=== PATIENT | male | born 1945 | race Caucasian/White ===

== ENCOUNTER 2016-04-02 15:53 | Inpatient (IN) | payer MEDICARE, OTHER ==
[~2016-04-02] VITALS: Ht 162.6 cm; Wt 63.6 kg
[~2016-04-02 15:53] MED LIST: ASPI81 PO; BENA5 PO; CLOP75 PO; DARV PO; LEVO.1 PO; LORA-392 PO; METO50TA PO; ZOCO10TA PO
[2016-04-02 15:54] VITALS: PULSE 70; RESP 16; TEMP 97.6; O2SAT 98
[2016-04-02 15:58] VITALS: BP 233/102
[2016-04-02 17:00] VITALS: BP 210/89; PULSE 71
[2016-04-02 17:11] LABS: AUTOMATED NEUTROPHIL # 4.7 TH/MM3 (1.8-7.7); BASOPHIL % 0.5 % (0.0-2.0); EOSINOPHIL # 0.1 TH/MM3 (0-0.4); EOSINOPHIL % 1.2 % (0.0-4.0); HEMATOCRIT 42.4 % (39.0-51.0); HEMO FLAGS DIFF FINAL; LYMPH % 11.4 % (9.0-44.0); LYMPHOCYTE # 0.7 TH/MM3 (1.0-4.8); MEAN CELL VOLUME 94.6 FL (80.0-100.0); MEAN CORPUSCULAR HEMOGLOBIN 32.4 PG (27.0-34.0); MEAN CORPUSCULAR HGB CONC 34.3 % (32.0-36.0); MONO % 13.4 % (0.0-8.0); NEUT % 73.5 % (16.0-70.0); PLATELET COUNT 211 TH/MM3 (150-450); RED BLOOD COUNT 4.49 MIL/MM3 (4.50-5.90); RED CELL DISTRIBUTION WIDTH 13.4 % (11.6-17.2); WHITE BLOOD COUNT 6.4 TH/MM3 (4.0-11.0)
[2016-04-02 17:31] LABS: ANION GAP 7 MEQ/L (5-15); BICARBONATE 26.9 MEQ/L (21.0-32.0); BLOOD UREA NITROGEN 14 MG/DL (7-18); CHLORIDE 95 MEQ/L (98-107); GLOMERULAR FILTRATION RATE 81 ML/MIN (>89); POTASSIUM 4.3 MEQ/L (3.5-5.1); SODIUM (NA) 129 MEQ/L (136-145)
[2016-04-02 17:36] LABS: CREATINE KINASE 202 U/L (39-308)
[2016-04-02 17:48] LABS: CKMB 3.5 NG/ML (0.5-3.6)
[2016-04-02 22:36] VITALS: BP 238/98; PULSE 78; RESP 14; TEMP 97.6; O2SAT 97
--- NOTE | 2016-04-02 23:33 | PD ---
HPI Chief Complaint: Hypertension Time Seen by Provider: 23:29 Travel History International Travel<30 days: No Contact w/Intl Traveler<30days: No Traveled to known affect area: No History of Present Illness HPI 70-year-old male came to the emergency room sent from the [place] for hypertension. Patient says that he has history of hypertension and has been taking his medication. However he checked his blood pressure today and was running high and hence went to see his primary care in [place]. Patient says that his 3 months ago and he thinks it could be related to the anxiety after her . However they noticed that his blood pressure was more than 200 and send him to the emergency room. Patient was in the waiting room for 7 hours and his blood pressure was rechecked few times and it remained more than 220 systolic. Patient is not complaining of any headache, chest pain or blurred vision. He has been taking his blood pressure medications like he supposed to. Patient says that 2 years ago he was on Ativan for anxiety but was stopped. He had gone to see his primary care today to see if he should be on anxiety medications. No suicidal ideations. [facility] Past Medical History Narrative Medical List of his past medical history as reviewed from the nursing note. Arthritis: No Asthma: No Heart Rhythm Problems: No Cardiac Catheterization: Yes Cardiovascular Problems: Yes High Cholesterol: No Chest Pain: Yes Congestive Heart Failure: No COPD: No Cerebrovascular Accident: No Coronary Artery Disease: Yes Diabetes: No Diminished Hearing: No GERD: No Genitourinary: No Headaches: No Hepatitis: No Hiatal Hernia: No Hypertension: Yes Kidney Stones: No Musculoskeletal: No Neurologic: No Reproductive: No Respiratory: No Migraines: No Myocardial Infarction: No Renal Failure: No Seizures: No Sleep Apnea: No Thyroid Disease: Yes (HYPOTHYROID) Ulcer: No Past Surgical History Abdominal Surgery: No Appendectomy: No Cholecystectomy: No Coronary Artery Bypass Graft: Yes (11/09/07) Coronary Stent: Yes (DR MEYERS DID IN JUNE 2007) Ear Surgery: No Endocrine Surgery: No Eye Surgery: No Genitourinary Surgery: No Gynecologic Surgery: No Oral Surgery: No Thoracic Surgery: No Social History Alcohol Use: Yes (5 BEERS DAILY) Tobacco Use: No (2PK PER DAY UP UNTIL July,) Substance Use: No Allergies-Medications (Allergen,Severity, Reaction): Coded Allergies: No Known Allergies (Verified , 04/02/16) Comments No known drug allergies. Reported Meds & Prescriptions Reported Meds & Active Scripts Active Reported Synthroid (Levothyroxine Sodium) 75 Mcg Tab 75 Mcg PO DAILY Zocor (Simvastatin) 10 Mg Tab 10 Mg PO HS Metoprolol Tartrate 25 Mg Tab 12.5 Mg PO BID Benazepril (Benazepril HCl) 20 Mg Tab 20 Mg PO DAILY Aspirin 81 Mg Tabdr 81 Mg PO DAILY Narrative Medication List of his home medications reviewed from the nursing note. Review of Systems Except as stated in HPI: all other systems reviewed are Neg Physical Exam Narrative GENERAL: Awake, alert, no obvious distress SKIN: Warm and dry. HEAD: Atraumatic. Normocephalic. EYES: Pupils equal and round. No scleral icterus. No injection or drainage. ENT: No nasal bleeding or discharge. Mucous membranes pink and moist. NECK: Trachea midline. No JVD. CARDIOVASCULAR: Regular rate and rhythm. No murmur appreciated. RESPIRATORY: No accessory muscle use. Clear to auscultation. Breath sounds equal bilaterally. GASTROINTESTINAL: Abdomen soft, non-tender, nondistended. Hepatic and splenic margins not palpable. MUSCULOSKELETAL: No obvious deformities. No clubbing. No cyanosis. No edema. NEUROLOGICAL: Awake and alert. No obvious cranial nerve deficits. Motor grossly within normal limits. Normal speech. PSYCHIATRIC: Appropriate mood and affect; insight and judgment normal. Data Data Last Documented VS Vital Signs Date Time Temp Pulse Resp B/P Pulse Ox O2 Delivery O2 Flow Rate FiO2 04/03/16 00:00 223/97 04/02/16 22:36 97.6 78 14 97 Room Air Orders Electrocardiogram (04/02/16 16:10) Complete Blood Count With Diff (04/02/16 16:10) Basic Metabolic Panel (Bmp) (04/02/16 16:10) Ckmb (Isoenzyme) Profile (04/02/16 16:10) Troponin I (04/02/16 16:10) CKMB (04/02/16 16:37) CKMB% (04/02/16 16:37) Nicardipine Inj (Cardene Inj) (04/02/16 23:45) Admit Order (Ed Use Only) (04/03/16 00:00) Labs Laboratory Tests Test 04/02/16 16:37 White Blood Count 6.4 TH/MM3 Red Blood Count 4.49 MIL/MM3 Hemoglobin 14.5 GM/DL Hematocrit 42.4 % Mean Corpuscular Volume 94.6 FL Mean Corpuscular Hemoglobin 32.4 PG Mean Corpuscular Hemoglobin 34.3 % Concent Red Cell Distribution Width 13.4 % Platelet Count 211 TH/MM3 Mean Platelet Volume 8.8 FL Neutrophils (%) (Auto) 73.5 % Lymphocytes (%) (Auto) 11.4 % Monocytes (%) (Auto) 13.4 % Eosinophils (%) (Auto) 1.2 % Basophils (%) (Auto) 0.5 % Neutrophils # (Auto) 4.7 TH/MM3 Lymphocytes # (Auto) 0.7 TH/MM3 Monocytes # (Auto) 0.9 TH/MM3 Eosinophils # (Auto) 0.1 TH/MM3 Basophils # (Auto) 0.0 TH/MM3 CBC Comment DIFF FINAL Differential Comment Sodium Level 129 MEQ/L Potassium Level 4.3 MEQ/L Chloride Level 95 MEQ/L Carbon Dioxide Level 26.9 MEQ/L Anion Gap 7 MEQ/L Blood Urea Nitrogen 14 MG/DL Creatinine 0.92 MG/DL Estimat Glomerular Filtration 81 ML/MIN Rate Random Glucose 100 MG/DL Calcium Level 8.9 MG/DL Total Creatine Kinase 202 U/L Creatine Kinase MB 3.5 NG/ML Troponin I LESS THAN 0.02 NG/ML MDM Medical Decision Making Medical Screen Exam Complete: Yes Emergency Medical Condition: Yes Medical Record Reviewed: Yes Interpretation(s) Twelve-lead EKG was reviewed by me. Normal sinus rhythm, normal axis, nonspecific ST-T wave changes. Heart rate of 70 bpm. Differential Diagnosis Malignant hypertension, hyponatremia Narrative Course 11:41 PM patient's blood pressure in the room when I was there was 233 systolic. His blood test results were back that were done in triage and sodium was 129. I have started him on Cardene drip for his malignant hypertension. Patient is on Benazepril which could be the reason for his hyponatremia. I intend to admit this patient so that his blood pressure could be controlled better and he could also be put on appropriate antihypertensives before being discharged. Critical Care Narrative Aggregate critical care time was 30 minutes. Time to perform other separately billable procedures was not included in the critical care time. My time did not include minutes spent treating any other patients simultaneously or on activities that did not directly contribute to the patient's treatment. The services I provided to this patient were to treat and/or prevent clinically significant deterioration that could result in: Malignant hypertension, Marlen steele I provided critical care services requiring my management, as noted below: Chart data review, documentation time, medication orders and management, vital sign assessments/reviewing monitor data, ordering and reviewing lab tests, ordering and interpreting/reviewing x-rays and diagnostic studies, care of the patient and discussion of the patient with the admitting physicians. Procedures EKG Prior to Arrival: Yes Diagnosis Primary Impression: Malignant hypertension Additional Impression: Hyponatremia Admitting Information Admitting Physician Requests: Admit Scripts Lorazepam (Ativan)0.5 Mg Tab0.5 Mg PO Q12H PRN (anxiety) #14 TAB Prov:Serafin Cevallos MD 04/04/16 Sertraline (Zoloft)50 Mg Tab25 Mg PO BID #60 TAB Prov:Serafin Cevallos MD 04/04/16 Zak Schmid MD Apr 02, 2016 23:32
[2016-04-02] MEDS ORDERED: niCARdipine INJ 25 MG in SODIUM CHLOR 0.9% 250 ML INJ 250 ML IV SCH (23:45)
[2016-04-03] VITALS (25 sets, daily range): BP systolic 108–223; BP diastolic 57–97; PULSE 54–80; RESP 12–20; TEMP 97.5–97.8; O2SAT 94–99
[2016-04-03] MEDS ORDERED: ONDANSETRON HCL 4 MG/2 ML VIAL IVP PRN (00:15)
[2016-04-03] MEDS ORDERED: BISACODYL 10 MG SUPP PR PRN (00:15)
[2016-04-03] MEDS ORDERED: ACETAMINOPHEN 325 MG TAB PO PRN (00:15)
[2016-04-03] MEDS ORDERED: SODIUM CHLORIDE 0.9% FLUSH 5 ML FLUSH FLUSH PRN (00:15)
[2016-04-03] MEDS ORDERED: MORPHINE SULFATE 4 MG/ML INJ IV PRN (00:15)
[2016-04-03] MEDS ORDERED: SODIUM CHLOR 0.9% 1000 ML INJ 1,000 ML IV ONE (00:15)
[2016-04-03] MEDS ORDERED: ACETAMINOPHEN/HYDROcodone 325 MG/5 MG TAB PO PRN (00:15)
[2016-04-03] MEDS ORDERED: ASPI1TAB69 PO (00:22)
[2016-04-03] MEDS ORDERED: ZOCO10TA PO (00:22)
[2016-04-03] MEDS ORDERED: METO25TA3 PO (00:22)
[2016-04-03] MEDS ORDERED: BENA20TA PO (00:22)
[2016-04-03] MEDS ORDERED: LEVO.075 PO (00:22)
--- NOTE | 2016-04-03 00:53 | RADRPT ---
EXAM DATE/TIME: 04/03/2016 00:03 [place] COMPARISON: No previous studies available for comparison. INDICATIONS : Chest pain. MEDICAL HISTORY : Hypertension. Coronary artery disease. SURGICAL HISTORY : Coronary artery stent. CABG. Thyroidectomy. ENCOUNTER: Initial ACUITY: 1 day PAIN SCORE: 0/10 LOCATION: Bilateral chest FINDINGS: Portable AP view of the chest demonstrates a normal-sized cardiac silhouette. Patient is post median sternotomy and CABG. Multiple EKG lines overlie the patient. No effusion, consolidation, or pneumotho rax is visualized. The bones and soft tissues demonstrate no acute abnormality. CONCLUSION: No acute cardiopulmonary abnormality is identified. Raf Paulino MD on April 03, 2016 at 0:51 Board Certified Radiologist. This report was verified electronically.
[2016-04-03 01:22] LABS: BLOOD, URINE NEG (NEG); GLUCOSE,URINE NEG (NEG); KETONE, URINE NEG (NEG); NITRITE,URINE NEG (NEG); URINE COLOR LIGHT-YELLOW (YELLW/STRAW)
[2016-04-03 01:32] LABS: COMMENT (UR) CULT NOT INDICATED; CULTURE IF INDICATED CULT NOT INDICATED
--- NOTE | 2016-04-03 03:16 | HHI.HP ---
HPI Service [facility] Primary Care Physician Abundio Ellis M.D. Admission Diagnosis malignant hypertension, hyponatremia Diagnoses: (1) Hypertensive urgency Diagnosis: Principal (2) Hyponatremia Diagnosis: Principal Travel History International Travel<30 Days: No Contact w/Intl Traveler <30 Da: No Traveled to Known Affected Are: No History of Present Illness This is a 70-year-old male with a PMH of HTN, Hyperlipidemia and CAD who [place]. States [place] was >200 systolic at the [place] and was sent to the ER. Compliant w/ home BP medications. Denies chest pain, fever, chills, headache, nausea or vomiting. On arrival, BP 233/102, HR 70, O2 sat 98% on RA, Afebrile. Na 129. Trop negative. CBC essentially unremarkable. UA negative. CXR with no acute findings. While in ER, BP remained >220, started on Cardene gtt, BP currently 140/67, HR 80. Review of Systems Other ROS: 14 point review of systems otherwise negative. Past Family Social History Past Medical History PMH: HTN, Hyperlipidemia and CAD Past Surgical History PAST SURGICAL HISTORY: Cardiac Stent Allergies: Coded Allergies: No Known Allergies (Verified , 04/02/16) Family History PAST FAMILY HISTORY: Reviewed. No h/o DM or CAD Social History PAST SOCIAL HISTORY: H/o alcohol and tobacco. Negative for drugs. Physical Exam Vital Signs Vital Signs Date Time Temp Pulse Resp B/P Pulse Ox O2 Delivery O2 Flow Rate FiO2 04/03/16 01:30 80 14 140/67 98 Room Air 04/03/16 01:03 70 14 175/84 97 Room Air 04/03/16 00:38 59 14 170/80 97 Room Air 04/03/16 00:00 223/97 04/02/16 22:36 97.6 78 14 238/98 97 Room Air 04/02/16 17:00 71 210/89 04/02/16 15:58 233/102 04/02/16 15:54 97.6 70 16 98 Room Air Physical Exam PE: GENERAL: Elderly male in no acute distress. HEENT: PERRLA, EOMI. No scleral icterus or conjunctival pallor. No lid lag or facial droop. CARDIOVASCULAR: Regular rate and rhythm. No obvious murmurs to auscultation. No chest tenderness to palpation. RESPIRATORY: No obvious rhonchi or wheezing. Clear to auscultation. Breath sounds equal bilaterally. GASTROINTESTINAL: Abdomen soft, non-tender, nondistended. BS normal. MUSCULOSKELETAL: Extremities without clubbing, cyanosis, or edema. No obvious deformities. NEUROLOGICAL: Awake, alert and oriented x4. No focal neurologic deficits. Moving both upper and lower extremities spontaneously. Laboratory Laboratory Tests Test 04/02/16 04/03/16 16:37 01:00 White Blood Count 6.4 Red Blood Count 4.49 Hemoglobin 14.5 Hematocrit 42.4 Mean Corpuscular Volume 94.6 Mean Corpuscular Hemoglobin 32.4 Mean Corpuscular Hemoglobin 34.3 Concent Red Cell Distribution Width 13.4 Platelet Count 211 Mean Platelet Volume 8.8 Neutrophils (%) (Auto) 73.5 Lymphocytes (%) (Auto) 11.4 Monocytes (%) (Auto) 13.4 Eosinophils (%) (Auto) 1.2 Basophils (%) (Auto) 0.5 Neutrophils # (Auto) 4.7 Lymphocytes # (Auto) 0.7 Monocytes # (Auto) 0.9 Eosinophils # (Auto) 0.1 Basophils # (Auto) 0.0 CBC Comment DIFF FINAL Differential Comment Sodium Level 129 Potassium Level 4.3 Chloride Level 95 Carbon Dioxide Level 26.9 Anion Gap 7 Blood Urea Nitrogen 14 Creatinine 0.92 Estimat Glomerular Filtration 81 Rate Random Glucose 100 Calcium Level 8.9 Total Creatine Kinase 202 Creatine Kinase MB 3.5 Troponin I LESS THAN 0.02 Urine Color LIGHT-YELLOW Urine Turbidity CLEAR Urine pH 7.0 Urine Specific [place] 1.007 Urine Protein NEG Urine Glucose (UA) NEG Urine Ketones NEG Urine Occult Blood NEG Urine Nitrite NEG Urine Bilirubin NEG Urine Urobilinogen LESS THAN 2.0 Urine Leukocyte Esterase NEG Urine RBC 1 Urine WBC LESS THAN 1 Microscopic Urinalysis Comment CULT NOT INDICATED Result Diagram: 04/02/16 7347 04/02/16 163 Assessment and Plan Problem List: (1) Hypertensive urgency ICD Code: I16.0 Status: Acute (2) Hyponatremia ICD Code: E87.1 Status: Acute Assessment and Plan A/P: 1. Hypertensive Urgency: [facility], while in [facility] persistently w/ BP >220. Started on Cardene gtt in ER, repeat BP 140's systolic , wean off Cardene, resume home medications. No associated chest pain, fever, chills, nausea or vomiting. CXR w/ no acute findings, images reviewed by me. 2. Hyponatremia: Na 129, appears chronic, previously 131 on 12/22/07, repeat labs in am. 3. DVT Prophylaxis: SCD/Teds. 4. Social work for d/c planning as needed. 5. Case discussed at length w/ ER physician. Physician Certification 2 Midnight Certification Type: Admission for Inpatient Services Order for Inpatient Services The services are ordered in accordance with Medicare regulations or non- Medicare payer requirements, as applicable. In the case of services not specified as inpatient-only, they are appropriately provided as inpatient services in accordance with the 2-midnight benchmark. Estimated LOS (days): 2 days is the estimated time the patient will need to remain in the hospital, assuming treatment plan goals are met and no additional complications. Post-Hospital Plan: Not yet determined Giuliana Peres MD Apr 03, 2016 03:16
[2016-04-03 05:53] LABS: ALKALINE PHOSPHATASE 42 U/L (45-117); ALT (GPT) 21 U/L (12-78); ANION GAP 9 MEQ/L (5-15); AST (GOT) 17 U/L (15-37); BICARBONATE 25.1 MEQ/L (21.0-32.0); BLOOD UREA NITROGEN 9 MG/DL (7-18); CHLORIDE 101 MEQ/L (98-107); GLOMERULAR FILTRATION RATE 97 ML/MIN (>89); POTASSIUM 3.9 MEQ/L (3.5-5.1); SODIUM (NA) 135 MEQ/L (136-145); TOTAL BILIRUBIN ADULT 0.5 MG/DL (0.2-1.0)
[2016-04-03 05:56] LABS: AUTOMATED NEUTROPHIL # 4.9 TH/MM3 (1.8-7.7); BASOPHIL % 0.5 % (0.0-2.0); EOSINOPHIL # 0.1 TH/MM3 (0-0.4); EOSINOPHIL % 1.1 % (0.0-4.0); HEMATOCRIT 42.1 % (39.0-51.0); HEMO FLAGS DIFF FINAL; LYMPH % 12.6 % (9.0-44.0); LYMPHOCYTE # 0.8 TH/MM3 (1.0-4.8); MEAN CELL VOLUME 94.8 FL (80.0-100.0); MEAN CORPUSCULAR HEMOGLOBIN 32.4 PG (27.0-34.0); MEAN CORPUSCULAR HGB CONC 34.2 % (32.0-36.0); MONO % 11.9 % (0.0-8.0); NEUT % 73.9 % (16.0-70.0); PLATELET COUNT 200 TH/MM3 (150-450); RED BLOOD COUNT 4.44 MIL/MM3 (4.50-5.90); RED CELL DISTRIBUTION WIDTH 13.3 % (11.6-17.2); WHITE BLOOD COUNT 6.6 TH/MM3 (4.0-11.0)
[2016-04-03] MEDS: SODIUM CHLORIDE 0.9% FLUSH 5 ML FLUSH FLUSH SCH ×2 (07:30→20:55)
[2016-04-03] MEDS ORDERED: hydrALAZINE HCL 20 MG/ML VIAL IV PUSH PRN (07:30)
[2016-04-03] MEDS ORDERED: ENALAPRILAT 1.25 MG/ML VIAL IV PUSH PRN (07:30)
[2016-04-03] MEDS: LISINOPRIL 20 MG TAB PO SCH (07:31)
[2016-04-03] MEDS: METOPROLOL TARTRATE 25 MG TAB PO SCH ×2 (07:31→20:53)
[2016-04-03] MEDS: ASPIRIN EC 81 MG TABEC PO SCH (08:13)
--- NOTE | 2016-04-03 10:23 | HHI.PR ---
Subjective Remarks Follow-up for hypertensive urgency. The patient's Cardene drip was stopped around 4 AM, BP elevated to 179/80 this morning, he was given his morning medications which included lisinopril 20 mg and metoprolol 12.5 mg, BP now improved to 108/60. Patient continues to deny any medical complaints including no headache, chest pain, or shortness of breath. Patient states his 3 months ago and he has been under a lot of stress. 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 [facility] for some depression and anxiety. Denies suicidal ideations. The patient also drinks caffeine daily, and had his coffee on his way to the [facility] appointment yesterday. The patient is physically fit, walks 3 miles daily, denies any symptoms of angina. The patient would like to go home today if possible. Objective Vitals Vital Signs Date Time Temp Pulse Resp B/P Pulse Ox O2 Delivery O2 Flow Rate FiO2 04/03/16 10:04 70 20 108/60 98 Room Air 04/03/16 09:02 62 20 131/62 98 Room Air 04/03/16 08:02 144/70 04/03/16 07:00 65 20 179/80 98 Room Air 04/03/16 06:00 64 14 148/70 98 Room Air 04/03/16 05:00 59 14 128/65 99 Room Air 04/03/16 04:00 60 14 122/65 99 Room Air 04/03/16 03:00 60 14 117/60 99 Room Air 04/03/16 02:45 60 14 131/65 98 Room Air 04/03/16 02:00 64 14 126/64 98 Room Air 04/03/16 01:30 80 14 140/67 98 Room Air 04/03/16 01:03 70 14 175/84 97 Room Air 04/03/16 00:38 59 14 170/80 97 Room Air 04/03/16 00:00 223/97 04/02/16 22:36 97.6 78 14 238/98 97 Room Air 04/02/16 17:00 71 210/89 04/02/16 15:58 233/102 04/02/16 15:54 97.6 70 16 98 Room Air I/O 2/2/17 2/2/17 04/02/16 04/03/16 04/03/16 04/03/16 07:00 15:00 23:00 07:00 15:00 23:00 Intake Total 744 ml Output Total 1150 ml Balance -406 ml Intake IV Total 744 ml Output Urine Total 1150 ml # Voids 2 Result Diagram: 04/03/16 0453 04/03/16 0453 Imaging Last Impressions Chest X-Ray 04/03/16 0000 Signed Impressions: Service Date/Time: Sunday, April 03, 2016 00:03 - CONCLUSION: No acute cardiopulmonary abnormality is identified. Raf Paulino MD Objective Remarks GENERAL: Well-nourished, well-developed pleasant physically fit elderly male patient in [facility]. SKIN: Warm and dry. No rash. HEAD: Normocephalic. Atraumatic. EYES: Pupils equal and round. No scleral icterus. No injection or drainage. ENT: No nasal bleeding or discharge. Mucous membranes pink and moist. NECK: Supple. Trachea midline. CARDIOVASCULAR: Regular rate and rhythm. S1, S2 noted. No murmur appreciated. Midline sternotomy scar well-healed. RESPIRATORY: No accessory muscle use. Clear to auscultation. Breath sounds equal bilaterally. GASTROINTESTINAL: Abdomen soft, non-tender, nondistended. Normoactive bowel sounds x4. MUSCULOSKELETAL: No obvious deformities. Extremities without clubbing, cyanosis , or edema. NEUROLOGICAL: Awake and alert. No obvious cranial nerve deficits. Motor grossly within normal limits. 5/5 muscle strength in bilateral upper and lower extremities. Normal speech. PSYCHIATRIC: Appropriate mood and affect; insight and judgment normal. Medications and IVs Current Medications Medications (Trade) Dose Ordered Sig/Melani Route Start Time Stop Time Status Last Admin Nicardipine HCl 25 mg/Sodium Chloride 260 ml @ 0 mls/hr TITRATE IV 04/02/16 23:45 04/03/16 00:34 (NS 1000 ml Inj) 1,000 ml @ 100 mls/hr Q10H ONCE IV 04/03/16 00:15 04/03/16 10:14 04/03/16 00:33 (NS Flush) 2 ml UNSCH PRN FLUSH 04/03/16 00:15 (NS Flush) 2 ml BID FLUSH 04/03/16 09:00 (Zofran Inj) 4 mg Q6H PRN IVP 04/03/16 00:15 (Dulcolax Supp) 10 mg DAILY PRN NV 04/03/16 00:15 (Tylenol) 650 mg Q6H PRN PO 04/03/16 00:15 ([place] 5-325 Mg) 1 tab Q4H PRN PO 04/03/16 00:15 (Morphine Inj) 2 mg Q3H PRN IV 04/03/16 00:15 (Ecotrin Ec) 81 mg DAILY PO 04/03/16 09:00 04/03/16 08:13 (Prinivil) 20 mg DAILY PO 04/03/16 09:00 04/03/16 07:31 (Lopressor) 12.5 mg BID PO 04/03/16 09:00 04/03/16 07:31 (Pravachol) 20 mg HS PO 04/03/16 21:00 (Catapres) 0.1 mg Q6H PRN PO 04/03/16 07:30 (Vasotec Inj) 1.25 mg Q6H PRN IV PUSH 04/03/16 07:30 (Apresoline Inj) 10 mg Q6H PRN IV PUSH 04/03/16 07:30 Urinary Catheter: No Vascular Central Line Catheter: No A/P Problem List: (1) Hypertensive urgency ICD Code: I16.0 Status: Acute (2) Hyponatremia ICD Code: E87.1 Status: Acute Assessment and Plan 70-year-old male with a PMH of HTN, Hyperlipidemia and CAD who was sent to the ER from the [place] for elevated BP >200 systolic. Hypertensive Urgency: Referred to ER from [place] for SBP >200, while in ER, BP persistently >220. Started on Cardene gtt in ER, repeat BP 140's systolic, weaned off Cardene around 4am, resumed home medications including lisinopril and metoprolol. No associated headache, chest pain, fever, chills, nausea or vomiting. CXR w/ no acute findings, images reviewed by me. BP much improved today, patient wants to go home. Elevated BP likely secondary to recent increased stress, anxiety, and caffeine use. Check echocardiogram prior to discharge. Hyponatremia: Na 129, appears chronic, previously 131 on 12/22/07, repeat labs today show improvement, Na 135. CAD: chronic, stable. Continue patient's aspirin, statin, ACEi and BB. HLD: chronic, stable, continue patient's statin. Anxiety/Depression: discussed with the patient about [facility]. He states he has been on Ativan prn in the past which worked at first but then the [facility] because [facility] stopped working. Psychiatry consult. DVT Prophylaxis: SCD/Teds. Maureen Glaser PA-C Apr 03, 2016 10:23 am
[2016-04-03] MEDS: cloNIDine HCL 0.1 MG TAB PO PRN (13:42)
--- NOTE | 2016-04-03 14:08 | EKG ---
Date Performed: 04/02/2016 Time Performed: 16:26:24 PTAGE: 70 years EKG: Sinus rhythm NORMAL ECG Compared to prior tracing the diffuse nonspecific T wave changes have resolved PREVIOUS TRACING : 11/12/2007 08.20 DOCTOR: Joy Garcia Interpretating Date/Time 04/03/2016 14:06:28
[2016-04-03] MEDS ORDERED: LORazepam 0.5 MG TAB PO PRN (16:00)
--- NOTE | 2016-04-03 16:15 | MB ---
cc: RAÚL ISRAEL DATE OF CONSULTATION: 04/03/2016 ADDENDUM: In the psychiatric evaluation. Please add REVIEW OF SYSTEMS The patient denies everything except high blood pressure depression and anxiety. Raúl Deshpande /4:01 PM /4:07 PM
--- NOTE | 2016-04-03 16:35 | MB ---
cc: RAÚL ISRAEL DATE OF CONSULTATION: 04/03/2016 HISTORY OF PRESENT ILLNESS This is a 70-year-old white male who was admitted for his blood pressure. The patient claimed that he was going to go see a psychiatrist at the [place] for his anxiety and depression but because of his blood pressure he was sent here to control that. The patient claimed that after 16 years of marriage three months ago his of liver cancer metastatic and he has been feeling sad, lonely and depressed, has been having some difficulty sleeping, misses her, but denied any suicidal ideation, intentions or plans. Denied any auditory or visual hallucinations or paranoia. Sometimes he feels that he has no enjoyment in life but he is very hopeful. He claimed that his 's children are here and they keep an eye on him. The patient denies any alcohol or drug use and/or abuse, and denies any suicidal ideation, intentions or plans. BACKGROUND HISTORY The patient was born in [place]. He has two brothers and one sister. His mother is still alive, father . His childhood was described as happy. He denied any physical, verbal or sexual abuse growing up. He did finish high school and then he joined the [employer] for four years, received honorable discharge. He denied any drugs or alcohol use and/or abuse. 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 Prior to that he had one son, his had two children. PAST PSYCHIATRIC HISTORY The patient denied any inpatient psychiatric hospitalization or any other psychiatric treatment. FAMILY HISTORY Family history is negative for any emotional difficulty, nervous breakdown or suicide attempt. MENTAL STATUS EXAMINATION This is a 70-year-old white male, looks younger than his stated age, was alert, oriented x3, cooperative, casually dressed. His speech was clear, spontaneous without any evidence of loose associations or flights of ideas or pressured speech. His mood was described as feeling depressed and anxious since his three months ago. His affect was appropriate. He denied any suicidal ideation, intentions or plan. He denied any active auditory or visual hallucinations. There was no evidence of any formed paranoid delusion. He seems to be of average intelligence with fairly good memory for his age. His insight is fair and his judgment seems to be okay on hypothetical situation. IMPRESSION Adjustment disorder with mixed emotions, anxiety and depression since the loss of his . RECOMMENDATIONS At this time I will start him on Zoloft 25 mg one twice a day to gradually increase according to his need and response. Side effect and other alternative treatments were explained to the patient. [facility]. If there is anything more I can offer you, please do not hesitate to call upon me. Raúl GOODWIN /3:54 PM /4:06 PM
--- NOTE | 2016-04-03 19:04 | EC ---
Study Study Date:04/03/2016 STUDY CONCLUSIONS SUMMARY - Left ventricle: The cavity size was normal. Wall thickness was normal. Systolic function was normal. The estimated ejection fraction was in the range of 55% to 60%. Wall motion was normal; there were no regional wall motion abnormalities. - Aortic valve: Mild regurgitation. Valve area: 1.48cm^2(VTI). Valve area: 1.4cm^2 (Vmax). - Mitral valve: Mild regurgitation. - Pulmonary arteries: PA peak pressure: 38mm Hg (S). If LV function is below 40, please consider prescribing an ACEI or ARB or document rationale for non-use. PROCEDURE DATA STUDY STATUS: Elective. Procedure: Transthoracic echocardiography. Image quality was good. Scanning was performed from the parasternal, apical, and subcostal acoustic windows. Study completion: The patient tolerated the procedure well. Transthoracic echocardiography. M-mode, complete 2D, complete spectral Doppler, and color Doppler. Height: Height: 64in. Patient status: Inpatient. CARDIAC ANATOMY LEFT VENTRICLE: The cavity size was normal. Wall thickness was normal. Systolic function was normal. The estimated ejection fraction was in the range of 55% to 60%. Wall motion was normal; there were no regional wall motion abnormalities. AORTIC VALVE: Trileaflet; normal thickness leaflets. Doppler: Transvalvular velocity was within the normal range. There was no stenosis. Mild regurgitation. Valve area: 1.48cm^2(VTI). Valve area: 1.4cm^2 (Vmax). Mean gradient: 5mm Hg (S). Peak gradient: 10mm Hg (S). AORTA: Aortic root: The aortic root was normal in size. MITRAL VALVE: Structurally normal valve. Doppler: Transvalvular velocity was within the normal range. There was no evidence for stenosis. Mild regurgitation. Peak gradient: 3mm Hg (D). LEFT ATRIUM: The atrium was normal in size. RIGHT VENTRICLE: The cavity size was normal. Wall thickness was normal. PULMONIC VALVE: Doppler: Transvalvular velocity was within the normal range. There was no evidence for stenosis. No regurgitation. TRICUSPID VALVE: Structurally normal valve. Doppler: Transvalvular velocity was within the normal range. Trace to mild regurgitation. PULMONARY ARTERY: The main pulmonary artery was normal-sized. Systolic pressure was within the normal range. RIGHT ATRIUM: The atrium was normal in size. PERICARDIUM: There was no pericardial effusion. SYSTEMIC VEINS: Inferior vena cava: The vessel was normal in size. BASIC MEASUREMENTS ADULT NORMAL Left ventricle LV internal dimension, ED, chordal level, 47.5 mm 43-52 PLAX LV internal dimension, ES, chordal level, 37.5 mm 23-38 PLAX Fractional shortening, chordal level, PLAX *21 % >29 LV posterior wall thickness, ED 9.1 mm IVS/LVPW ratio, ED 1 <1.3 Ventricular septum Septal thickness, ED 9.1 mm Aortic valve Leaflet separation 18 mm 15-26 Aorta Root diameter, ED 28 mm Left atrium Anterior-posterior dimension 41 mm BASIC MEASUREMENTS ADULT NORMAL Aortic valve Leaflet separation 18 mm 15-26 DOPPLER MEASUREMENTS ADULT NORMAL Main pulmonary artery Pressure, S *38 mm Hg =30 Aortic valve Peak velocity, S 162 cm/s Mean velocity, S 96.9 cm/s VTI, S 31.3 cm Mean gradient, S 5 mm Hg Peak gradient, S 10 mm Hg Valve area, VTI 1.48 cm^2 Valve area, Vmax 1.4 cm^2 Regurgitant velocity, ED 411 cm/s Regurgitant deceleration 2660 cm/s^2 Regurgitant pressure half-time 452 ms Regurgitant gradient, ED 68 mm Hg Mitral valve Peak E-wave velocity 90.8 cm/s Peak A-wave velocity 73.5 cm/s Deceleration time 211 ms 150-230 Peak gradient, D 3 mm Hg Peak E/A ratio 1.2 Tricuspid valve Regurgitant peak velocity 299 cm/s Peak RV-RA gradient, S 36 mm Hg Maximal regurgitant velocity 299 cm/s Systemic veins Estimated CVP 5 mm Hg Right ventricle RV pressure, S *41 mm Hg <30 Pulmonic valve Peak velocity, S 87.2 cm/s LEGEND: Mean values are shown as u=mean value. Asterisk (*) andino values outside specified normal range. Prepared and signed by Marycruz Morales [id number]
[2016-04-03] MEDS: SERTRALINE HCL 50 MG TAB PO SCH (20:54)
[2016-04-03] MEDS ORDERED: PILL SPLITTER OTHER PRN (21:00)
[2016-04-03] MEDS ORDERED: PRAVASTATIN SOD 20 MG TAB PO SCH (21:00)
[2016-04-04] VITALS (12 sets, daily range): BP systolic 131–137; BP diastolic 70–75; PULSE 50–69; RESP 12–16; TEMP 98.2–98.6; O2SAT 96–97
[2016-04-04] MEDS ORDERED: LEVOTHYROXINE SODIUM 75 MCG TAB PO SCH (06:00)
[2016-04-04] MEDS ORDERED: ZOLO50TA PO (06:17)
--- NOTE | 2016-04-04 06:17 | HHI.DCPOC ---
Discharge Care Plan Diagnosis: (1) Hyponatremia (2) Hypertensive urgency Your Health Problems Are: Difficulty with ADL Exercise Tolerance Goals to Promote Your Health * To prevent worsening of your condition and complications * To maintain your health at the optimal level Directions to Meet Your Goals Take your medications as prescribed Follow your dietary instruction Follow activity as directed Keep your appointments as scheduled Take your immunizations and boosters as scheduled If your symptoms worsen call your PCP, if no PCP go to Urgent Care Center or Emergency Room Smoking is Dangerous to Your Health. Avoid second hand smoke Call the 24-hour hour crisis hotline for domestic abuse at Serafin Cevallos MD Apr 04, 2016 06:17
[2016-04-04] MEDS: cloNIDine HCL 0.1 MG TAB PO PRN (06:41)
--- NOTE | 2016-04-04 08:34 | HHI.PR ---
Subjective Remarks F/U HTN and anxiety. Doing good educated re benzo and SSRI and possible SE. Benzo paulo addiciting potential and no driving and SSRI with increased SI with initial treatment. Denies SI. Advise to seek help Objective Vitals Vital Signs Date Time Temp Pulse Resp B/P Pulse Ox O2 Delivery O2 Flow Rate FiO2 04/04/16 08:16 98.2 69 16 131/70 96 04/04/16 07:00 63 04/04/16 06:00 60 04/04/16 05:00 54 04/04/16 04:00 53 04/04/16 03:00 98.6 55 12 137/75 97 04/04/16 03:00 52 04/04/16 02:00 50 04/04/16 01:00 50 04/04/16 00:00 51 04/03/16 23:00 54 04/03/16 23:00 97.8 56 12 144/76 98 04/03/16 22:00 54 04/03/16 21:00 97.8 66 12 172/87 99 04/03/16 21:00 64 04/03/16 19:19 67 16 163/71 97 Room Air 04/03/16 18:08 97.5 66 20 141/71 97 Room Air 04/03/16 17:00 70 20 132/63 98 Room Air 04/03/16 16:00 72 20 161/62 95 Room Air 04/03/16 15:00 56 20 122/63 94 Room Air 04/03/16 12:59 61 181/84 98 04/03/16 11:01 66 20 144/70 98 Room Air 04/03/16 10:27 66 20 148/70 98 Room Air 04/03/16 10:04 70 20 108/60 98 Room Air 04/03/16 09:02 62 20 131/62 98 Room Air I/O 04/03/16 04/03/16 04/03/16 04/04/16 04/04/16 04/04/16 07:00 15:00 23:00 07:00 15:00 23:00 Intake Total 744 ml 240 ml Output Total 1150 ml 500 ml Balance -406 ml -260 ml Intake Oral 240 ml IV Total 744 ml Output Urine Total 1150 ml 500 ml # Voids 2 Result Diagram: 04/03/16 0453 04/03/16 0453 Imaging Last Impressions Chest X-Ray 04/03/16 0000 Signed Impressions: Service Date/Time: Sunday, April 03, 2016 00:03 - CONCLUSION: No acute cardiopulmonary abnormality is identified. Raf Paulino MD Objective Remarks GENERAL: WD WN in [place] SKIN: Warm and dry. HEAD: Atraumatic. Normocephalic. EYES: Pupils equal and round. No scleral icterus. No injection or drainage. ENT: No nasal bleeding or discharge. Mucous membranes pink and moist. NECK: Trachea midline. No JVD. CARDIOVASCULAR: Regular rate and rhythm. RESPIRATORY: No accessory muscle use. Clear to auscultation. Breath sounds equal bilaterally. GASTROINTESTINAL: Abdomen soft, non-tender, nondistended. MUSCULOSKELETAL: Extremities without clubbing, cyanosis, or edema. No obvious deformities. NEUROLOGICAL: Awake and alert. No obvious cranial nerve deficits. Motor grossly within normal limits. Five out of 5 muscle strength in the arms and legs. Normal speech. PSYCHIATRIC: Appropriate mood and affect; insight and judgment normal. Procedures none A/P Problem List: (1) Hypertensive urgency ICD Code: I16.0 Status: Acute (2) Hyponatremia ICD Code: E87.1 Status: Resolved Assessment and Plan 70-year-old male with a PMH of HTN, Hyperlipidemia and CAD who was [facility] from [facility] for elevated BP >200 systolic. Hypertensive Urgency: Referred to ER from [facility] for SBP >200, while in ER, BP persistently >220. Started on Cardene gtt in ER, repeat BP 140's systolic, weaned off Cardene around 4am, resumed home medications including lisinopril and metoprolol. No associated headache, chest pain, fever, chills, nausea or vomiting. CXR w/ no acute findings, images reviewed by me. BP much improved today, patient wants to go home. Elevated BP likely secondary to recent increased stress, anxiety, and caffeine use. Unremarkable echocardiogram Hyponatremia: Na 129, appears chronic, previously 131 on 12/22/07, repeat labs today show improvement, Na 135. CAD: chronic, stable. Continue patient's aspirin, statin, ACEi and BB. HLD: chronic, stable, continue patient's statin. Anxiety/Depression: discussed with the patient about [facility]. He states he has been on Ativan prn in the past which worked at first but then [facility] because [facility] stopped working. Psychiatry started SSRI DVT Prophylaxis: SCD/Teds. Discharge Planning Discharge patient to home Condition on discharge: Improved Regular Diet as tolerated Ad Liliane activity no driving Rx written: Zoloft and ativan Follow-up with primary care physician and Psych in 1wk Serafin Cevallos MD Apr 04, 2016 08:34
[2016-04-04] MEDS ORDERED: LORA-392 PO (08:41)
[2016-04-04] MEDS: LISINOPRIL 20 MG TAB PO SCH (09:17)
[2016-04-04] MEDS: METOPROLOL TARTRATE 25 MG TAB PO SCH (09:17)
[2016-04-04] MEDS: ASPIRIN EC 81 MG TABEC PO SCH (09:17)
[2016-04-04] MEDS: SERTRALINE HCL 50 MG TAB PO SCH (09:17)
[2016-04-04] MEDS: SODIUM CHLORIDE 0.9% FLUSH 5 ML FLUSH FLUSH SCH (09:18)
== END 2016-04-04 11:08 | disposition home or self-care (01) | DRG 305 ==
LOC: NEPE 15:53 → NEDA 04-03 00:02 → NEDH 04-03 04:29 → HCIN 04-03 20:34
PROVIDERS: ADMIT Internal Medicine; ATTEND Internal Medicine
DX: I16.0 Hypertensive urgency (principal); E87.1 Hypo-osmolality and hyponatremia; I25.10 Atherosclerotic heart disease of native coronary artery without angina pectoris; E78.5 Hyperlipidemia, unspecified; F43.23 Adjustment disorder with mixed anxiety and depressed mood; Z95.5 Presence of coronary angioplasty implant and graft
CPT/HCPCS: 71010; 80048; 80053; 81001; 82550; 82552; 84484; 85025; 93005; 93306; J7030; J7050